=== PATIENT | female | born 1950 | race Two or more races ===

== ENCOUNTER 2024-05-25 20:32 | Emergency (ER) | payer MEDICARE, MEDICAID, SELFPAY ==
[2024-05-25 20:34] VITALS: BMI 34.0
[2024-05-25 20:45] VITALS: BP 160/91; PULSE 112; RESP 20; TEMP 37.3; O2SAT 96
--- NOTE | 2024-05-25 21:00 | EDNOTE_ITS ---
ED Abdominal Pain RME/HPI General Chief Complaint: Abdominal Pain Stated complaint: BILATERAL LEG/ RLQ PAIN Time seen by provider: 05/25/24 20:59 Arrival date/time: 05/25/24 20:32 RME / HPI RME / HPI narrative: This section includes all my notes and documentations, including HPI, PE, and ED course. Carlos Isaac MD HPI: 73 y/o female with Hx of hypertension here with severe bilateral diffuse leg pain since yesterday, severe earlier today. Had trouble standing or walking due to the pain. No obvious cause. No known injury. She also reports chronic right sided abdominal pain for months, worse in the past few days. Had severe nausea earlier. No obvious fever. No diarrhea. No other complaints. ROS: All negative except as documented in HPI. Physical Exam: General: Alert and oriented. Appears uncomfortable. High BP noted. Eyes: Conjunctivae and lids clear. ENT: No nasal congestion. Neck: Supple. Heart: Sinus tachycardia noted. Lungs: No respiratory distress. Good air movement. No rhonchi, wheezing, rales. Chest: No tenderness. Abdomen: Soft with equivocal tenderness in the right flank region. Normal bowel sounds. No distension. No rebound or guarding. Back: No CVA tenderness. Legs: No clubbing, cyanosis, edema, tenderness. Skin: Warm and dry. Neuro: Alert and oriented X 3. No peripheral motor deficits. Musculoskeletal: All major joints and bones are not tender with no limited ROM. I reviewed all diagnostic test results. My interpretation of the EKG is sinus rhythm with no acute ST?T changes. My interpretation of the chest x-ray is no active disease. My review of the leg venous Doppler is no DVT. My review of the gallbladder US report is NAD. My review of the abdominal CT report is NAD. Blood tests and urine tests unremarkable. At this point, diagnoses include myalgia and abdominal pain of unclear etiology. Treatment here included NS, Toradol, Metoprolol, and Morphine. Significant improvement noted. Recommended more outpatient workup. Based on my best medical judgment, made decision no further evaluation or treatment indicated at this time. Patient understands and agrees to the discharge instructions customized and printed, see below. Discharge Instructions from Dr. Isaac printed for you: 1. After extensive evaluation, exact cause of your symptoms (including right- sided abdominal pain and leg pain) was not determined. But there is no emergency or serious condition that needs to be diagnosed now. Such as heart attack or blood clots or severe infection or severe electrolyte abnormalities. 2. Eat regular nutritious meals. For good hydration, increase oral fluid and maintain clear urine. If dark or yellow, increase oral fluid. Zofran for nausea/vomiting. 3. Tylenol with codeine for severe pain. 4. See a private doctor on 05/28/24 for recheck and further care. Ask to review all test results and official radiology reports, to make sure you receive all necessary follow-ups and monitoring. To make sure there is no serious intra-abdominal condition, ask for help with more investigation not available here in the ER. Such as EGD or scoping the stomach, colonoscopy or scoping the colon, and referral to see brass sorter. Ask for referral to see airline reservationist (specialists of muscles and arthritis) to make sure there is no serious underlying condition. 5. Seek immediate medical care with worsening or with any concerns. Carlos Isaac MD Related Data Previous Rx's ?Medication ?Instructions ?Recorded pantoprazole 40 mg granules 40 mg PO QDAY ##14 2 delayed-release for susp in packet (Protonix) ondansetron 4 mg disintegrating 4 mg PO TID PRN nausea and 05/26/24 tablet vomiting 30 days #10 tabs tramadol 50 mg tablet 50 mg PO Q8H PRN pain #20 ta bs 05/26/24 Allergies Allergy/AdvReac Type Severity Reaction Status Date / Time Penicillins Allergy Mild Verified 06/25/11 10:03 Review of Systems Review of Systems Systems Reviewed: All systems reviewed, normal except as documented Narrative Review of Systems: Refer to HPI above. Past Medical History Past Medical History CARDIAC: Positive Hypertension Social History SMOKING STATUS: Never smoker ED Exam Narrative Physical exam: Refer to HPI above. Course Quality Measures none Orders Category Date Time Status Bedside COVID-19 Antigen Test NOW Care 05/25/24 21:05 Completed Bedside Influenza A&B Antigen Test NOW Care 05/25/24 21:05 Completed EKG (ED ONLY) *Do not use* NOW Care 05/25/24 21:06 Completed Saline [Insert IV] NOW Care 05/25/24 21:06 Completed Straight [In and Out Catheter] X1 Care 05/25/24 21:[address] abdomen pelvis wo con Stat Exams 05/25/24 21:06 Completed EKG (ED Only) Stat Exams 05/25/24 21:06 Draft US gall bladder Stat Exams 05/25/24 21:07 Completed US venous doppler LE BI Stat Exams 05/25/24 21:07 Completed XR chest 1V portable Stat Exams 05/25/24 21:06 Completed Amylase Stat Lab 05/25/24 21:26 Completed Bilirubin,Direct Stat Lab 05/25/24 21:26 Completed Blood Culture (Lab) Stat Lab 05/25/24 21:31 Received CBC Stat Lab 05/25/24 21:26 Completed CK [Creatine Kinase] Stat Lab 05/25/24 21:26 Completed CMP [Comprehensive Metabolic Panel] Stat Lab 05/25/24 21:26 Completed CRP [C-Reactive Protein] Stat Lab 05/25/24 21:26 Completed ESR [Sed Rate (ESR)] Stat Lab 05/25/24 21:26 Completed Free T4 (Free Thyroxine) Stat Lab 05/25/24 21:26 Completed Lactate (Lactic Acid) Stat Lab 05/25/24 21:26 Completed Lipase Stat Lab 05/25/24 21:26 Completed Magnesium Stat Lab 05/25/24 21:26 Completed PT [Prothrombin Time with INR] Stat Lab 05/25/24 21:26 Completed PTT [Partial Thromboplastin Time] Stat Lab 05/25/24 21:26 Completed Procalcitonin Stat Lab 05/25/24 21:26 Completed Strep A Rapid Stat Lab 05/25/24 21:34 Completed TSH [Thyroid Stimulating Hormone] Stat Lab 05/25/24 21:26 Completed Troponin I Stat Lab 05/25/24 21:26 Completed UA, C/S IF [Urinalysis, C/S if Indicated] Stat Lab 05/25/24 21:18 Completed VBG [Venous Blood Gas] Stat Lab 05/25/24 21:26 Completed Ketorolac Inj [Toradol Inj] Med 05/25/24 23:47 Discontinued 15 mg IVP X1 ONE Metoprolol Tartrate [Lopressor] Med 05/25/24 23:51 Discontinued 50 mg PO X1 ONE Morphine Inj Med 05/25/24 23:47 Discontinued 4 mg IVP X1 ONE Sodium Chloride 0.9% 1000 ml [Ns] 1,000 ml Med 05/25/24 21:06 Discontinued IV 999 mls/hr Vital Signs Vital signs: Vital Signs Temperature 99.2 F 05/25/24 20:45 Pulse Rate 112 H 05/25/24 20:45 Respiratory Rate 20 05/25/24 20:45 Blood Pressure 160/91 H 05/25/24 20:45 Pulse Oximetry (%) 96 05/25/24 20:45 Oxygen Delivery Method Room Air 05/25/24 20:45 Abdominal Pain MDM MDM Narrative MDM Narrative:: Scribe Attestation: I, Maryellen Russell, am scribing for and in the presence of Dr. Isaac. Provider Notation: Although this document has been carefully reviewed, there may still be some phonetic and other typographical errors. These errors are purely grammatical due to imperfections in the software program and should not be construed in any way to compromise the substance of the patient's medical care during this visit. 73 y/o female with Hx of hypertension presents to ED c/o BL leg pain that became severe today, nausea, diarrhea, fever, chills x 2 days. Leg pain is worse today to the point that she cannot walk. In addition, patient also reports RUQ abdominal pain x several years. Denies any history of abdominal surgeries. Denies any dysuria, hematuria, or bloody stool. Patient data External records reviewed:: [facility] previous records (No prior ED records to review.) Clinical information provided by:: patient Social determinants that could affect healthcare access:: none Patient has the following chronic illnesses:: Hypertension How is presenting disease/condition affected by chronic disease/condition?: exacerbated by Evaluation data The following diagnostics were reviewed and interpreted by me:: lab results, radiology exam(s) (Chest XR shows lungs are clear, osseous structures intact, with no active disease.) and EKG tracing(s) (My interpretation of the EKG: NSR (103 bpm) with no ST-T changes. Carlos Isaac MD) Lab and/or radiology exams considered but not ordered:: None Interpretation Summary: Myalgia, Abdominal pain of unclear etiology Medications / Prescriptions Medications or Prescriptions considered but not ordered:: None. Medication administrations:: Medication Administration History Discontinued Medications Sodium Chloride (Ns) 1,000 mls @ 999 mls/hr IV .Q1H1M ONE Stop: 05/25/24 22:06 Last Infusion: 05/26/24 00:00 Dose: Infused Documented By: Admin: 05/25/24 21:58 Dose: 999 mls/hr Documented By: FRANCISCO Ketorolac Tromethamine (Ketorolac Inj 30 Mg/Ml Vial) 15 mg IVP X1 ONE Stop: 05/25/24 23:48 Last Admin: 05/26/24 00:10 Dose: 15 mg Documented By: Metoprolol Tartrate (Metoprolol Tartrate 25 Mg Tablet) 50 mg PO X1 ONE Stop: 05/25/24 23:52 Last Admin: 05/26/24 00:13 Dose: 50 mg Documented By: Morphine Sulfate (Morphine Sulf Inj 10 Mg/Ml Vial) 4 mg IVP X1 ONE Stop: 05/25/24 23:48 Last Admin: 05/26/24 00:08 Dose: 4 mg Documented By: MD CISNEROS, Toradol, Metoprolol, Morphine Consultations Consultation(s) initiated? (list below): No Diagnosis Differential diagnosis abdominal pain: acute appendicitis, calculus of kidney, constipation, diverticulitis, endometriosis, gastroenteritis, pancreatitis, sm all bowel obstruction and other (DVT, rhabdomyolysis, electrolyte abnormalities) Most likely diagnosis given after review of the tests above:: Myalgia, Abdominal pain of unclear etiology Admission Indicated Admission indicated?: not indicated Explain why admission is indicated or not indicated:: With significant improvement, there was no indication for admission. Admission Request Was there a request for admission?: No Disposition Plan Disposition Plan: Discharge Discharge Attestation Discharge Attestation: The patient and all family members were given an opportunity to ask questions and understood the discharge instructions. Discharge instructions specifically effects, indications for sooner follow up or return to the emergency department, and the expected course of current diagnosis. Patient condition: Stable Discharge Plan Plan Patient Disposition: HOME (Self Care) Prescriptions/Referrals Prescriptions/Med Rec: New ondansetron 4 mg tablet,disintegrating 4 mg PO TID PRN (Reason: nausea and vomiting) 30 Days Qty: 10 0RF tramadol 50 mg tablet 50 mg PO Q8H PRN (Reason: pain) Qty: 20 0RF No Action pantoprazole [Protonix] [address] for susp in packet 40 mg PO QDAY Qty: 14 0RF Referrals: No Primary/Family,Physician [Primary Care Provider] - In 1 week Problem List Clinical Impression: Myalgia, Abdominal pain Patient/Caregiver Discharge Instructions Discharge Activity: activity as tolerated Education Materials: ED Abdominal Pain Unkn Cause Fem, ED Myalgias Additional Instructions: Discharge Instructions from Dr. Isaac printed for you: 1. After extensive evaluation, exact cause of your symptoms (including right- sided abdominal pain and leg pain) was not determined. But there is no emergency or serious condition that needs to be diagnosed now. Such as heart attack or blood clots or severe infection or severe electrolyte abnormalities. 2. Eat regular nutritious meals. For good hydration, increase oral fluid and maintain clear urine. If dark or yellow, increase oral fluid. Zofran for nausea/vomiting. 3. Tylenol with codeine for severe pain. 4. See a private doctor on 05/28/24 for recheck and further care. Ask to review all test results and official radiology reports, to make sure you receive all necessary follow-ups and monitoring. To make sure there is no serious intra-abdominal condition, ask for help with more investigation not available here in the ER. Such as EGD or scoping the stomach, colonoscopy or scoping the colon, and referral to see brass sorter. Ask for referral to see airline reservationist (specialists of muscles and arthritis) to make sure there is no serious underlying condition. 5. Seek immediate medical care with worsening or with any concerns. Print Language: Icelandic Stand Alone Forms: Amanda Award Info., Patient Portal Info Letter
--- NOTE | 2024-05-25 21:06 | XR_ITS ---
Examination: CT abdomen and pelvis without contrast. Coronal 3-D reconstructions. Sagittal 2-D reconstructions. Date and time of exam:May 25, 2024 1154 hrs. Indications: Right flank pain today CTDI: vol (mGy): 11.3 DLP: (mGycm): 601 Technique: Axial images of the abdomen have been obtained, 3 mm slice thickness Intravenous contrast material has not been administered. Low dose protocols were performed. One or more of the following dose reduction techniques were used; automated exposure control, adjustment of the mA and/or KV according to patient size, use of iterative reconstruction technique. Findings: No focal liver or splenic lesions No gallstones No pancreatic or adrenal mass No renal or ureteral calculi, no hydronephrosis Aorta normal size Normal appendix No pelvic mass No diverticulitis No bowel obstruction No bladder mass or bladder calculi Anteverted uterus Moderate osteopenia Impression: No renal or ureteral calculi, no hydronephrosis Normal appendix No bowel obstruction or diverticulitis No bladder mass or bladder calculi
--- NOTE | 2024-05-25 21:06 | EKG_ITS ---
[facility] Test Date: 2024-05-25 Pat Name: JONNY FUENTES Department: Room: - Gender: Female [employer] Teacher: : 1950 Requested By: Carlos Stroud Order Number: [id number] Reading MD: Carlos Stroud Measurements Intervals [place] Rate: 103 P: 40 NH: 158 QRS: 3 QRSD: 81 T: 19 QT: 315 QTc: 412 Interpretive Statements SINUS TACHYCARDIA ABNORMAL RHYTHM ECG No previous ECG available for comparison /store/S0/[id number]/ecg/[id number].pdf
--- NOTE | 2024-05-25 21:06 | XR_ITS ---
Examination: PA chest single view Technique: Upright PA chest single view Exam date and time: May 25, 20242121 hrs. Indications: Dizziness weakness today. Findings: Normal heart size Lungs are clear. The osseous structures are intact Impression: No active disease
--- NOTE | 2024-05-25 21:07 | XR_ITS ---
Examination: Abdomen sonogram, Limited Date and time of exam: 09/24/2024 1019 hrs. Indications: Right upper abdominal pain beginning 5 years ago Technique: Real-time fernandez scale transabdominal sonographic images of the upper abdomen obtained. Findings: Normal gallbladder Normal common bile duct 0.2 cm Pancreatic head 2.6 cm Liver 15.1 cm fatty infiltration Normal hepatopedal portal venous flow Patent IVC Impression: Normal gallbladder Normal common bile duct Fatty liver
--- NOTE | 2024-05-25 21:07 | XR_ITS ---
Examination: Venous duplex lower extremity sonogram, bilateral. Date and time of exam: May 25, 2024 1033 hrs. Indications: Bilateral leg pain today Technique: Multiple sonographic images of the deep venous system have been obtained. B-mode/2-D grayscale imaging of vascular structures and Doppler spectral analysis (waveforms) and color performed Both legs are examined. Findings: Deep venous systems do not demonstrate abnormal echogenicity. All visualized deep veins exhibit compressibility. All visualized deep veins exhibit augmentation. Impression: Negative for deep vein thrombosis
[2024-05-25 21:44] LABS: Collection Type, Urine Clean Catch
[2024-05-25 21:46] LABS: Lactate (Lactic Acid) 1.8 mMol/L (0.4-2.0)
[2024-05-25 21:47] LABS: Base Excess, Venous 3 (-3-3); Basophils % (Auto) 0 % (0-2.5); Eosinophils # (Auto) 0.1 Thou/mm3 (0.0-0.5); Eosinophils % (Auto) 1 % (0-10); Hemoglobin 14.5 g/dL (12.0-16.0); Immature Granulocytes % (Auto) 0 % (0-0); Immature Granulocytes Auto 0.02 Thou/mm3 (0.00-0.00); Lymphocytes # (Auto) 1.4 Thou/mm3 (1.0-4.8); Lymphocytes % (Auto) 21 % (10-50); Mean Corpuscular HGB Conc 34.5 g/dl (31.0-37.0); Mean Corpuscular Hemoglobin 28.4 pg (25.0-35.0); Mean Corpuscular Volume 82 fL (80-100); Monocytes # (Auto) 0.4 Thou/mm3 (0.0-0.8); Monocytes % (Auto) 5 % (0-12); Neutrophils # (Auto) 4.9 Thou/mm3 (1.8-7.7); Neutrophils % (Auto) 72 % (37-80); Nucleated Red Blood Cell % 0 /100 WBC (0); O2 Saturation, Venous 85 % (96-97); PCO2, Venous 33 mmHg (36-56); PO2, Venous 47 mmHg (15-58); Platelet Count 243 Thou/mm3 (140-440); RDW Standard Deviation 38.7 fL (36.4-46.3); Red Blood Count 5.11 Miln/mm3 (4.00-5.20); White Blood Count 6.8 Thou/mm3 (3.6-11.0); pH, Venous 7.49 (7.33-7.66)
[2024-05-25 21:49] VITALS: BP 151/96; PULSE 108; RESP 17; TEMP 37.3; O2SAT 96
[2024-05-25 21:49] LABS: Bilirubin,Urine Negative (Negative); Blood,Urine Trace (Negative); Clarity,Urine Clear (Clear/Hazy); Color,Urine Yellow (Lt Yel-Yel); Culture Indicated,Urine Not Indicated; Glucose, Urine Negative (Negative); Ketones,Urine Negative (Negative); Leukocyte Esterase,Urine Negative (Negative); Nitrite,Urine Negative (Negative); Protein,Urine Trace (Neg - Trace); RBC,Urine 7 /hpf (0-3); Specific Gravity,Urine 1.027 (1.001-1.035); Squamous Epithelial Cell,Urine 1 /hpf (0-5); Urobilinogen,Urine Negative mg/dL (0.0-1.0); WBC,Urine 1 /hpf (0-5)
[2024-05-25] MEDS: SODIUM CHLORIDE 0.9% 1000 ML 1,000 ML 999 ML IV (21:58)
[2024-05-25 22:17] LABS: Strep A Rapid Negative (Negative)
[2024-05-25 22:27] LABS: Sed Rate (ESR) 28 mm/hr (0-30)
[2024-05-25 22:47] LABS: Alanine Aminotransferase 26 U/L (10-49); Albumin, Serum 4.8 gm/dL (3.4-4.8); Albumin/Globulin Ratio 1.5 (1.2-2.2); Alkaline Phosphatase 73 U/L (46-116); Anion Gap 10 (7-16); Aspartate Amino Transferase 31 U/L (0-34); BUN/Creatinine Ratio 15 Ratio (12-20); Bilirubin,Direct 0.2 mg/dL (0.0-0.3); Bilirubin,Total 0.7 mg/dL (0.3-1.2); Blood Urea Nitrogen 15 mg/dL (9-23); Calcium 9.7 mg/dL (8.3-10.6); Calcium (Corrected) 9.7 mg/dL (8.5-10.1); Carbon Dioxide 25.8 mMol/L (20.0-31.0); Chloride 107 mMol/L (98-107); Creatine Kinase 92 U/L (34-171); Free T4 (Free Thyroxine) 1.37 ng/dL (0.89-1.76); Globulin 3.3 gm/dL (2.3-3.5); Glucose 115 mg/dL (74-106); Lipase 46 U/L (12-53); Osmolality,Calculated 286 (275-295); Potassium 3.5 mMol/L (3.4-5.1); Procalcitonin 0.08 ng/ml (0.0-0.49); Sodium 143 mMol/L (136-145); Thyroid Stimulating Hormone 1.77 uIU/mL (0.55-4.78); Total Protein 8.1 gm/dL (5.7-8.2); Troponin I < 0.020 ng/mL (0.0-0.045); eGFR > 60 See Note
[2024-05-25 23:11] LABS: Amylase 175 U/L (30-118); C-Reactive Protein < 0.5 mg/dL (0.0-0.9)
[2024-05-26] MEDS: MORPHINE SULF INJ 10 MG/ML VIAL 4 MG IVP (00:08)
[2024-05-26] MEDS: KETOROLAC INJ 30 MG/ML VIAL 15 MG IVP (00:10)
[2024-05-26 00:13] VITALS: BP 144/118; PULSE 92
[2024-05-26] MEDS: METOPROLOL TARTRATE 25 MG TABLET 50 MG PO (00:13)
[2024-05-26 00:51] VITALS: BP 161/82; PULSE 78; RESP 18; TEMP 36.7; O2SAT 99
== END 2024-05-26 00:52 | disposition home or self-care (01) ==
PROVIDERS: Emergency Provider Emergency Medicine
DX: M79.605 Pain in left leg (principal); M79.604 Pain in right leg; I10 Essential (primary) hypertension; R11.10 Vomiting, unspecified; R10.31 Right lower quadrant pain
CPT/HCPCS: 36415; 71045; 74176; 76705; 80053; 81001; 82150; 82248; 82550; 82803; 83605; 83690; 83735; 84145; 84439; 84443; 84484; 85025; 85610; 85652; 85730; 86140; 87040; 87400; 87651; 87811; 93970; 96361; 96374; 96375; J1885; J2270; J7030; A9270